=== PATIENT | female | born 1980 | race Caucasian/White ===

== ENCOUNTER 2024-02-27 15:14 | Emergency (ER) | payer BC ==
[~2024-02-27] VITALS: Ht 167.6 cm; Wt 81.0 kg
[2024-02-27 15:35] VITALS: O2SAT 97
[2024-02-27] MEDS: DEXAMETHASONE 10 MG/ML VIAL IM ONE (17:37)
[2024-02-27] MEDS: METOCLOPRAMIDE HCL 10MG TABLET PO ONE (17:37)
[2024-02-27] MEDS ORDERED: SULF1TAB48 MT (19:14)
[2024-02-27] MEDS ORDERED: CEPH500T MT (19:14)
[2024-02-27] MEDS: TETANUS, DIPHTHERIA, PERTUSSIS VAC/PF 0.5ML (>10YR OLD) IM ONE (20:43)
[2024-02-27] MEDS: LIDOCAINE HCL/PF 1% 10 MG/ML 5ML VIAL INFIL ONE (20:44)
[2024-02-27] MEDS: BACITRACIN ZINC OINT UDPKT TOP ONE (20:44)
[2024-02-27 20:45] VITALS: BP 138/77; PULSE 81; RESP 18; TEMP 36.66960; O2SAT 98
== END 2024-02-27 20:46 | disposition home or self-care (01) ==
LOC: ER 15:14
DX: L02.212 Cutaneous abscess of back [any part, except buttock and flank] (principal); R51.9 Headache, unspecified; Z90.49 Acquired absence of other specified parts of digestive tract; Z98.890 Other specified postprocedural states
CPT/HCPCS: 81025; 70450; 90715; 10060; 90471; 96372; 99285; J8597; J1100; J3490; Z7610 ×4; 99284

== ENCOUNTER 2024-08-29 18:37 | Emergency (ER) | payer SELFPAY ==
[~2024-08-29] VITALS: Ht 160 cm; Wt 84.0 kg
[~2024-08-29 18:37] MED LIST: CEPH500T MT; SULF1TAB48 MT
[2024-08-29 18:46] VITALS: O2SAT 100
[2024-08-29 18:59] VITALS: BP 130/80; PULSE 100; RESP 14; TEMP 36.6; O2SAT 100
[2024-08-29] MEDS ORDERED: IBUP-2029 MT (20:50)
[2024-08-29] MEDS ORDERED: SULF1TAB48 MT (20:50)
[2024-08-29] MEDS ORDERED: CEPH500C2 MT (20:50)
[2024-08-29] MEDS: IBUPROFEN 600MG TABLET PO ONE (20:53)
== END 2024-08-29 21:00 | disposition home or self-care (01) ==
LOC: ER 18:37
DX: N61.0 Mastitis without abscess (principal); Z90.49 Acquired absence of other specified parts of digestive tract; Z79.899 Other long term (current) drug therapy
CPT/HCPCS: 99283